=== PATIENT | male | born 1985 | race Caucasian/White ===

== ENCOUNTER 2017-12-11 14:54 | Emergency (ER) | payer SELFPAY ==
[~2017-12-11] VITALS: Ht 175.3 cm; Wt 74.8 kg
[~2017-12-11 14:54] MED LIST: NORCO 10-325 T1 EACH PO
[2017-12-11] MEDS ORDERED: LIDOCAINE HCL 2% JELLY 5 ML TUBE TOP ONE (16:00)
== END 2017-12-11 16:54 | disposition home or self-care (01) ==
LOC: ER 14:54
DX: K62.5 Hemorrhage of anus and rectum (principal); K64.4 Residual hemorrhoidal skin tags; F17.210 Nicotine dependence, cigarettes, uncomplicated
CPT/HCPCS: 99282; J2001